=== PATIENT | male | born 1960 | race Caucasian/White ===

== ENCOUNTER 2021-12-04 11:33 | Emergency (ER) | payer BC ==
[2021-12-04] MEDS: LORazepam 1 MG Tab PO ONE (12:45)
== END 2021-12-04 12:50 ==
LOC: MERGE 11:33 → LL.ED 11:33
DX: R04.0 Epistaxis (principal)
CPT/HCPCS: 30901; 30903; 36415; 80047; 85025; 85610; 99283; 99284-25; A9270-GY